=== PATIENT | female | born 1940 | race Caucasian/White ===

== ENCOUNTER 2018-12-29 18:07 | Emergency (ER) | payer MEDICARE, BC ==
[~2018-12-29] VITALS: Ht 170.2 cm; Wt 58.1 kg
[2018-12-29 19:17] LABS: Source, Urine Clean Catch
[2018-12-29 19:22] LABS: Bilirubin, Urine Neg (Neg); Blood, Urine 5+ (Neg); Glucose Qualitative, Urine Neg (Neg); Ketones, Urine Neg (Neg); Leukocyte Esterase, Urine 1+ (Neg); Nitrite, Urine Neg (Neg); Protein, Urine 2+ (Neg); Urobilinogen, Urine NORM (Normal)
[2018-12-29 20:01] LABS: Appearance, Urine Hazy (Clear); Color, Urine Yellow (P-Yellow)
[2018-12-29 20:02] LABS: Amorphous Light (0-Heavy); Bacteria Few /hpf; Mucus Light (0-Heavy); Squamous Epithelial Cells Few /hpf (Few)
[2018-12-29] MEDS ORDERED: Macrobid 100 M100 MG PO (20:25)
== END 2018-12-29 20:29 | disposition home or self-care (01) ==
LOC: ER 18:07
PROVIDERS: Emergency Medicine
DX: R82.71 Bacteriuria (principal); I10 Essential (primary) hypertension; Z87.891 Personal history of nicotine dependence
CPT/HCPCS: 81001; 87086; 99283